=== PATIENT | female | born 1990 | race Caucasian/White ===

== ENCOUNTER → 2022-11-01 | Outpatient (CLI) | payer OTHER | LOC: M RAD 10:19 | PROVIDERS: ATTEND Obstetrics & Gynecology | DX: O26.849 Uterine size-date discrepancy, unspecified trimester (principal); Z3A.36 36 weeks gestation of pregnancy ==

== ENCOUNTER 2022-11-15 07:56 | Inpatient (IN) | payer OTHER ==
[2022-11-15] VITALS (8 sets, daily range): BP systolic 111–138; BP diastolic 77–95
[~2022-11-15] VITALS: Ht 170.2 cm; Wt 64.7 kg
[2022-11-15] MEDS ORDERED: PRENTAB9 PO (08:18)
[2022-11-15] MEDS ORDERED: HOME MED LIST COMPLETE! XX SCH (08:55)
[2022-11-15] MEDS ORDERED: METHYLERGONOVINE MALEATE 0.2MG/ML 1ML VIAL IM PRN (09:10)
[2022-11-15] MEDS ORDERED: OXYTOCIN DRIP 30 UNITS in IV 1 EA IV PRN ×4 (09:10)
[2022-11-15] MEDS ORDERED: TRANEXAMIC ACID INJection 1,000 MG in NS 100 ML IV PRN (09:10)
[2022-11-15] MEDS ORDERED: LIDOCAINE 1% MDV 20ML VIAL INFIL PRN (09:10)
[2022-11-15 09:56] LABS: HEMATOCRIT 37.2 % (36.0-47.0); HEMOGLOBIN 13.1 g/dl (12.0-15.5); MEAN CORPUSCULAR HEMOGLOBIN 32.8 pg (27.0-33.0); MEAN CORPUSCULAR HGB CONC 35.2 g/dl (32.0-36.5); PLATELET COUNT, AUTOMATED 116 10^3/uL (150-450); WHITE BLOOD COUNT 4.1 10^3/uL (4.0-10.0)
[2022-11-15] MEDS: miSOPROStol 25MCG 1/4 TABLET PO SCH ×4 (10:05→22:36)
[2022-11-15] MEDS: LR 1,000 ML IV SCH (17:10)
[2022-11-16] VITALS (31 sets, daily range): BP systolic 109–140; BP diastolic 74–95
[2022-11-16] MEDS: LR 1,000 ML IV SCH ×4 (01:10→17:10)
[2022-11-16] MEDS: miSOPROStol 25MCG 1/4 TABLET PO SCH ×2 (02:39→06:42)
[2022-11-16] MEDS ORDERED: OXYTOCIN DRIP 30 UNITS in IV 1 EA IV SCH ×5 (11:05→21:35)
[2022-11-16] MEDS ORDERED: PENICILLIN G POTASSIUM 5 MU IV 5 MU in D5W MINI-BAG PLUS 100 ML IV STA (12:02)
[2022-11-16] MEDS ORDERED: PEN G POT 3,000,000 UNIT/50 ML 3,000,000 UNIT in IV 1 EA IV SCH (16:00)
[2022-11-16] MEDS ORDERED: AMPICILLIN SOD 2 GM in D5W MINI-BAG PLUS 100 ML IV STA (18:58)
[2022-11-16] MEDS ORDERED: AMPICILLIN SOD 1 GM in D5W MINI-BAG PLUS 50 ML IV SCH (20:00)
[2022-11-16] MEDS ORDERED: ONDANSETRON 4MG 2ML VIAL IV SCH (20:45)
[2022-11-16] MEDS ORDERED: ONDANSETRON 4MG 2ML VIAL IV PRN ×2 (20:50→21:35)
[2022-11-16] MEDS ORDERED: IBUPROFEN 600MG TAB PO PRN (21:35)
[2022-11-16] MEDS ORDERED: RHOGAM 300MCG (1500IU) INJ IM SCH (21:35)
[2022-11-16] MEDS ORDERED: METHYLERGONOVINE MALEATE 0.2 MG TAB PO PRN (21:35)
[2022-11-16] MEDS ORDERED: ACETAMINOPHEN TAB 650MG DOSE (2X325MG) PO PRN (21:35)
[2022-11-16] MEDS ORDERED: DIBUCAINE 1% OINTMENT 30GM TOP PRN (21:35)
[2022-11-16] MEDS: IBUPROFEN 800 MG TAB PO PRN (21:56)
[2022-11-16] MEDS: ACETAMINOPHEN 500 MG TAB PO PRN (21:56)
[2022-11-17] MEDS: LR 1,000 ML IV SCH (01:10)
[2022-11-17] MEDS: ACETAMINOPHEN 500 MG TAB PO PRN ×2 (05:36→16:53)
[2022-11-17] MEDS: DOCUSATE SODIUM 100MG CAPSULE PO PRN (05:36)
[2022-11-17 06:00] VITALS: BP 123/91
[2022-11-17] MEDS: PRENATAL VITAMINS CHEWABLE TABLET PO SCH (09:18)
[2022-11-17] MEDS: IBUPROFEN 800 MG TAB PO PRN ×2 (09:19→20:03)
[2022-11-17 18:00] VITALS: BP 130/94
[2022-11-18 06:00] VITALS: BP 124/89
[2022-11-18] MEDS: ACETAMINOPHEN 500 MG TAB PO PRN (06:30)
[2022-11-18] MEDS: IBUPROFEN 800 MG TAB PO PRN (06:30)
[2022-11-18] MEDS: DOCUSATE SODIUM 100MG CAPSULE PO PRN (06:33)
[2022-11-18] MEDS ORDERED: MEASLES,MUMPS,RUBELLA VACCINE INJ (MMR-II) SC.IMMUN ONE (09:00)
[2022-11-18] MEDS: PRENATAL VITAMINS CHEWABLE TABLET PO SCH (09:21)
[2022-11-18] MEDS ORDERED: COLA100C5 PO (09:46)
[2022-11-18] MEDS ORDERED: ACET1TAB55 PO (09:46)
[2022-11-18] MEDS ORDERED: IBUP-1022 PO (09:46)
== END 2022-11-18 12:50 | disposition home or self-care (01) | DRG 806 ==
LOC: M LDI 07:56 → M OBS 11-16 23:23
PROVIDERS: ADMIT Registered Nurse; ATTEND Registered Nurse
PROC: 10E0XZZ Delivery of Products of Conception, External Approach (ICD-10-PCS; principal; 2022-11-16)
PROC: 0HQ9XZZ Repair Perineum Skin, External Approach (ICD-10-PCS; 2022-11-16)
PROC: 3E0DXGC Introduction of Other Therapeutic Substance into Mouth and Pharynx, External Approach (ICD-10-PCS; 2022-11-16)
PROC: 3E033VJ Introduction of Other Hormone into Peripheral Vein, Percutaneous Approach (ICD-10-PCS; 2022-11-16)
DX: O24.429 Gestational diabetes mellitus in childbirth, unspecified control (principal); Z37.0 Single live birth; O10.92 Unspecified pre-existing hypertension complicating childbirth; Z3A.38 38 weeks gestation of pregnancy; O70.0 First degree perineal laceration during delivery; O99.824 Streptococcus B carrier state complicating childbirth